=== PATIENT | female | born 1935 | race Hispanic/Latino ===

== ENCOUNTER 2019-05-10 09:00 | Inpatient (IN) | payer MEDICARE ==
[~2019-05-10] VITALS: Ht 142.2 cm; Wt 56.5 kg
[~2019-05-10 09:00] MED LIST: AMLO-332 PO; ASCO500T9 PO; ASPI-555 PO; BUDE0.5A3 IH; ESCI10TA54 PO; FERR-82 PO; FISH1CAP27 PO; FLUT1DIS3 IH; IPRA3AMP24 IH; ISOS30TA6 PO; OMEP40CA13 PO; POTA99TA21 PO; RALO60TA13 PO; ROSU5TAB12 PO
[2019-05-10 12:54] VITALS: BP 99/67
[2019-05-10 13:22] LABS: BASOPHILS % (AUTO) 0.3 % (0.0-5.0); EOSINOPHILS % (AUTO) 1.4 % (0.0-8.0); HEMATOCRIT 36.2 % (36-48); LYMPHOCYTES % (AUTO) 16.5 % (21.0-51.0); MEAN CORPUSCULAR HEMOGLOBIN 30.3 pg (27.0-33.0); MEAN CORPUSCULAR HGB CONC 33.5 g/dL (32.0-36.0); MEAN CORPUSCULAR VOLUME 90.4 fL (79-99); MONOCYTES % (AUTO) 7.7 % (3.0-13.0); NEUTROPHILS % (AUTO) 74.1 % (40.0-77.0); PLATELET COUNT (AUTO) 141 K/uL (130-400); RED BLOOD CELL COUNT(AUTO) 4.01 MIL/uL (4.00-5.50); RED CELL DISTRIBUTION WIDTH 15.6 % (11.0-15.5); WHITE BLOOD COUNT (AUTO) 7.5 K/uL (4.8-10.8)
[2019-05-10 13:25] LABS: APPEARANCE,URINE Clear (CLEAR); BILIRUBIN,URINE Negative (NEGATIVE); COLOR,URINE Yellow (YELLOW); GLUCOSE, URINE (UA) Negative (NEGATIVE); KETONES,URINE Negative (NEGATIVE); LEUKOCYTE ESTERASE ,URINE Negative (NEGATIVE); NITRATE,URINE Negative (NEGATIVE); OCCULT BLOOD,URINE Negative (NEGATIVE); PROTEIN,URINE POS 1+ mg/dL (NEGATIVE)
[2019-05-10 13:27] LABS: CREATININE 0.7 mg/dL (0.5-1.5); POTASSIUM 3.9 mmol/L (3.5-5.1)
[2019-05-10 13:33] LABS: BACTERIA,URINE Rare /HPF (None Seen); RBC,URINE 0-1 /HPF (0-1); SQUAMOUS EPITHELIAL CELL,UR Few /HPF (0-2)
[2019-05-10 13:35] LABS: INR 1.03 (0.85-1.15); PARTIAL THROMBOPLASTIN TIME 27.6 SEC (26.3-35.5); PROTHROMBIN TIME 10.8 SEC (9.6-11.6)
[2019-05-10] MEDS ORDERED: CALC-190 PO (14:13)
[2019-05-10] MEDS ORDERED: SODIUM CHLORIDE 0.9% 1000ML 1,000 ML IV SCH (17:00)
--- NOTE | 2019-05-15 10:36 | NUR ---
CARDIOVASCULAR: EKG REVIEWED BY CHRISTIAN KIMBLE CRNA, NO ORDERS RECEIVED. O.K. TO PROCEED WITH PROCEDURE.
[2019-05-16] VITALS (28 sets, daily range): BP systolic 91–136; BP diastolic 52–81
[2019-05-16] MEDS ORDERED: IODIXANOL 320 MG/ML 100 ML VIAL ONE ×2 (06:46→07:39)
[2019-05-16] MEDS ORDERED: CEFAZOLIN SODIUM 1 GM VIAL ONE (06:47)
[2019-05-16] MEDS ORDERED: NOREPINEPHRINE BITARTRATE 1 MG/1 ML ML IV ONE (06:58)
[2019-05-16] MEDS ORDERED: LIDOCAINE PF 2% 5ML ABBOJECT ONE (07:01)
[2019-05-16] MEDS ORDERED: ONDANSETRON HCL 4 MG/2 ML VIAL ONE (07:01)
[2019-05-16] MEDS ORDERED: PHENYLEPHRINE HCL 10 MG/ML 1ML VIAL IV ONE (07:01)
[2019-05-16] MEDS ORDERED: PROPOFOL 10 MG/ML 20ML VIAL IV ONE ×2 (07:02→11:40)
[2019-05-16] MEDS ORDERED: FENTANYL CITRATE PF 50 MCG/1 ML 2ML VIAL ONE (07:02)
[2019-05-16] MEDS ORDERED: ROCURONIUM 10MG/1ML SYR 10 MG/ML ML ONE (07:02)
[2019-05-16] MEDS ORDERED: GLYCOPYRROLATE 0.2 MG/ML 5 ML VIAL ONE (07:46)
[2019-05-16] MEDS ORDERED: HEPARIN SODIUM 1000UNIT/ML 10ML VIAL ONE (08:20)
[2019-05-16] MEDS ORDERED: NEOSTIGMINE 5MG/5ML SYR IV ONE (11:23)
[2019-05-16] MEDS ORDERED: GLUCAGON 1MG KIT 1 MG ML IM PRN (12:00)
[2019-05-16] MEDS ORDERED: BUDESONIDE 0.5 MG/2 ML INH IH PRN (12:00)
[2019-05-16] MEDS ORDERED: DEXTROSE 50%-WATER 50 ML DISP.SYRIN IV PRN (12:00)
[2019-05-16] MEDS ORDERED: ONDANSETRON HCL 4 MG/2 ML VIAL IV PRN (12:00)
[2019-05-16] MEDS ORDERED: SODIUM CHLORIDE 0.9% 1000ML 1,000 ML IV SCH (12:00)
[2019-05-16] MEDS ORDERED: TEMAZEPAM 30 MG CAP PO PRN (12:00)
[2019-05-16] MEDS ORDERED: ACETAMINOPHEN 325 MG TAB PO PRN (12:00)
[2019-05-16] MEDS ORDERED: IPRATROPIUM/ALBUTEROL SULFATE 3 ML SOLUTION IH PRN (12:00)
[2019-05-16] MEDS: SUGAMMADEX SODIUM 200 MG/2 ML VIAL IV SCH (12:08)
[2019-05-16 15:40] LABS: INR 1.08 (0.85-1.15); PARTIAL THROMBOPLASTIN TIME 37.7 SEC (26.3-35.5); PROTHROMBIN TIME 11.3 SEC (9.6-11.6)
[2019-05-16] MEDS: INSULIN HUMULIN R 100 UNIT/ML 3ML SQ SCH ×2 (16:30→20:47)
[2019-05-16] MEDS: CEFAZOLIN SODIUM 1 GM VIAL IVP SCH (17:20)
--- NOTE | 2019-05-16 19:30 | NUR ---
ASSESSMENT PT RESTING IN BED IN SUPINE POSITION. BILATERAL PRESSURE DRSG TO BILATERAL GROINS INTACT. PT AAOX4, PLEASANT COOPERATIVE, FOLLOWS COMMANDS. O2 3L NC INTACT. 16 FR ROJAS TO BSD. IV FLUIDS WITHOUT DIFFICULTY. WHIT BOARD UP-DATE. CALLBELL WITHIN REACH. ASSESSMENT COMPLETED, SEE FLOW SHEET.
[2019-05-16] MEDS: ATORVASTATIN CALCIUM 10 MG TABLET PO SCH (20:46)
[2019-05-16] MEDS: POTASSIUM GLUCONATE 99 MG PO SCH (20:47)
[2019-05-16] MEDS ORDERED: SUB TO BREO ELLIPTA 100MCG/25MCG PER P&T IH SCH (21:00)
[2019-05-17] VITALS (32 sets, daily range): BP systolic 98–137; BP diastolic 49–83
[2019-05-17] MEDS: CEFAZOLIN SODIUM 1 GM VIAL IVP SCH (00:15)
[2019-05-17 03:55] LABS: HEMATOCRIT 29.6 % (36-48); MEAN CORPUSCULAR HEMOGLOBIN 30.8 pg (27.0-33.0); MEAN CORPUSCULAR HGB CONC 33.8 g/dL (32.0-36.0); PLATELET COUNT (AUTO) 95 K/uL (130-400); RED BLOOD CELL COUNT(AUTO) 3.25 MIL/uL (4.00-5.50); RED CELL DISTRIBUTION WIDTH 15.6 % (11.0-15.5); WHITE BLOOD COUNT (AUTO) 8.9 K/uL (4.8-10.8)
[2019-05-17 04:04] LABS: CREATININE 0.6 mg/dL (0.5-1.5)
[2019-05-17] MEDS: INSULIN HUMULIN R 100 UNIT/ML 3ML SQ SCH ×4 (05:46→20:11)
--- NOTE | 2019-05-17 07:14 | NUR ---
REPORT BEDSIDE REPORT GIVEN TO BRUNO RITTER
[2019-05-17] MEDS: CITALOPRAM 20 MG TABLET PO SCH (08:56)
[2019-05-17] MEDS: CALCIUM 600 + VITAMIN D 400 TABLET PO SCH (08:56)
[2019-05-17] MEDS: FERROUS SULFATE 325 MG TABLET.DR PO SCH (08:56)
[2019-05-17] MEDS: ASPIRIN 81 MG EC TAB PO SCH (08:56)
[2019-05-17] MEDS: PANTOPRAZOLE SODIUM 40 MG TABLET.DR PO SCH (08:56)
[2019-05-17] MEDS: FISH OIL 1000 MG/CAP PO SCH (08:56)
[2019-05-17] MEDS: ISOSORBIDE MONO 30MG TAB SR PO SCH (08:57)
[2019-05-17] MEDS: RALOXIFENE HCL 60 MG TABLET PO SCH (08:57)
[2019-05-17] MEDS: ASCORBIC ACID 500 MG TAB PO SCH (08:57)
[2019-05-17] MEDS: AMLODIPINE BESYLATE 5 MG TAB PO SCH (08:58)
[2019-05-17] MEDS: LOSARTAN 100 MG TABLET PO SCH (08:58)
[2019-05-17] MEDS: SUGAMMADEX SODIUM 200 MG/2 ML VIAL IV SCH (12:08)
--- NOTE | 2019-05-17 13:40 | NUR ---
BLEEDING NOTED TO RT GROIN, APPLIED PRESSURE TO SITE, REAPPLIED DSTAT TO SITE, COVERED WITH PRESSURE DRESSING. DR ROBLES NOTIFIED, NO NO NEW ORDERS GIVEN. VITAL SIGNS STABLE.
--- NOTE | 2019-05-17 17:37 | NUR ---
DC PLAN VISITED WITH PATIENT. PATIENT LIVES ALONE. PROVIDER 5 HRS A DAY. [facility] AT HOME. PATIENT WEAK AFTER PROCEDURE. RECOMMENDS SNF. MARGRET SIGNED FOR [facility]. INFO SENT LET REP KNOW. Addendum: 05/17/19 at 1739 by LUDMILA BAZZI RN CM Amended: Links added.
[2019-05-17] MEDS: ATORVASTATIN CALCIUM 10 MG TABLET PO SCH (20:33)
[2019-05-17] MEDS: POTASSIUM GLUCONATE 99 MG PO SCH (20:34)
--- NOTE | 2019-05-17 21:55 | NUR ---
Pt. transferred to room 224 via wheelchair,condition stable, bilateral groin dressing clean and dry,no bleeding no hematoma noted.Report was given to PCCU nurse using SBAr all questions answered.
[2019-05-18 03:44] LABS: HEMATOCRIT 27.7 % (36-48); MEAN CORPUSCULAR HEMOGLOBIN 30.2 pg (27.0-33.0); MEAN CORPUSCULAR HGB CONC 33.6 g/dL (32.0-36.0); MEAN CORPUSCULAR VOLUME 89.8 fL (79-99); PLATELET COUNT (AUTO) 96 K/uL (130-400); RED BLOOD CELL COUNT(AUTO) 3.08 MIL/uL (4.00-5.50); RED CELL DISTRIBUTION WIDTH 15.6 % (11.0-15.5); WHITE BLOOD COUNT (AUTO) 10.3 K/uL (4.8-10.8)
[2019-05-18 03:47] LABS: CREATININE 0.7 mg/dL (0.5-1.5); POTASSIUM 3.5 mmol/L (3.5-5.1)
[2019-05-18 04:44] VITALS: BP 116/73
[2019-05-18] MEDS: INSULIN HUMULIN R 100 UNIT/ML 3ML SQ SCH ×2 (06:40→11:30)
[2019-05-18 07:51] VITALS: BP 116/70
--- NOTE | 2019-05-18 08:00 | NUR ---
AM ASSESSMENT PT LAYING IN BED, HOB ELEVATED 30 DEGREES, RESTING. A/O X 3. NO SOB. NO DISTRESS NOTED. DENIES CHEST PAIN OR DISCOMFORT. DENIES PALPITATIONS. TELE: 80s. DENIES N/V AND/OR DIARRHEA. BILATERAL GROINS DSG DRY & INTACT. BILATERAL GROIN PUNCTURE SITES SOFT, NON-TENDER. NO BLEEDING, NO HEMATOMA NOTED. PRESSURE DSG REMOVED FROM RT GROIN. (+) PEDAL PULSES. BLE PINK & WARM TO TOUCH. UP W/ASSISTANCE. INSTRUCTED TO CALL FOR ASSISTANCE. CALL CIERRA W/IN REACH.
[2019-05-18] MEDS: ASPIRIN 81 MG EC TAB PO SCH (08:39)
[2019-05-18] MEDS: ISOSORBIDE MONO 30MG TAB SR PO SCH (08:40)
[2019-05-18] MEDS: FISH OIL 1000 MG/CAP PO SCH (08:40)
[2019-05-18] MEDS: CITALOPRAM 20 MG TABLET PO SCH (08:40)
[2019-05-18] MEDS: FERROUS SULFATE 325 MG TABLET.DR PO SCH (08:41)
[2019-05-18] MEDS: RALOXIFENE HCL 60 MG TABLET PO SCH (08:41)
[2019-05-18] MEDS: LOSARTAN 100 MG TABLET PO SCH (08:41)
[2019-05-18] MEDS: PANTOPRAZOLE SODIUM 40 MG TABLET.DR PO SCH (08:41)
[2019-05-18] MEDS: CALCIUM 600 + VITAMIN D 400 TABLET PO SCH (08:41)
[2019-05-18] MEDS: ASCORBIC ACID 500 MG TAB PO SCH (08:41)
[2019-05-18] MEDS: AMLODIPINE BESYLATE 5 MG TAB PO SCH (08:41)
[2019-05-18 11:59] VITALS: BP_SYST 100; BP_SYST 116; BP_DIAS 70; BP_DIAS 72
--- NOTE | 2019-05-18 16:15 | NUR ---
DISCHARGE MED REC FAXED TO [facility].
[2019-05-18 16:29] VITALS: BP_SYST 115; BP_SYST 15; BP_DIAS 73
--- NOTE | 2019-05-18 17:30 | NUR ---
DISCHARGE TELEPHONE REPORT CALLED TO Prasad BOOGIE LVN @ [facility].
--- NOTE | 2019-05-18 17:40 | NUR ---
DISCHARGE VERBAL & WRITTEN DISCHARGE INSTRUCTIONS REVIEWED & GIVEN TO PT. QUESTIONS ENCOURAGED & CLARIFIED. PROPER CARE & ACTIVITY AFTER ENDOLUMINAL REVIEWED. F/U APPT INFORMATION REVIEWED. TELE KARINA REMOVED. IV DISCONTINUED. MI INFORMED REPORT ALREADY CALLED TO [facility]. PT TO GATHER PERSONAL BELONGINGS. [facility] TRANSPORT TO TAKE PT TO [facility].
--- NOTE | 2019-05-18 18:35 | NUR ---
DISCHARGE [facility] STAFF HERE TO TRANSFER PT TO SNF FACILITY. PT TAKEN TO [facility] VEHICLE VIA WC.
== END 2019-05-18 18:45 | DRG 269 ==
LOC: EDSTATUS 12:00 → DAHIP 05-16 05:39 → 2BH 05-16 05:40 → 2DH 05-17 21:16
PROVIDERS: ADMIT Internal Medicine Pulmonary Disease; ATTEND Internal Medicine Pulmonary Disease
PROC: 04793DZ Dilation of Right Renal Artery with Intraluminal Device, Percutaneous Approach (ICD-10-PCS; principal; 2019-05-16)
PROC: 04V03DZ Restriction of Abdominal Aorta with Intraluminal Device, Percutaneous Approach (ICD-10-PCS; 2019-05-16)
PROC: 047A3DZ Dilation of Left Renal Artery with Intraluminal Device, Percutaneous Approach (ICD-10-PCS; 2019-05-16)
PROC: B4181ZZ Fluoroscopy of Bilateral Renal Arteries using Low Osmolar Contrast (ICD-10-PCS; 2019-05-16)
PROC: B4101ZZ Fluoroscopy of Abdominal Aorta using Low Osmolar Contrast (ICD-10-PCS; 2019-05-16)
DX: I71.4 Abdominal aortic aneurysm, without rupture (principal); D62 Acute posthemorrhagic anemia; I70.1 Atherosclerosis of renal artery; E78.5 Hyperlipidemia, unspecified; J44.9 Chronic obstructive pulmonary disease, unspecified; K21.9 Gastro-esophageal reflux disease without esophagitis; M41.9 Scoliosis, unspecified; M81.0 Age-related osteoporosis without current pathological fracture; I10 Essential (primary) hypertension; Z86.79 Personal history of other diseases of the circulatory system
CPT/HCPCS: 34710; 34712; 34713; 36252; 36415; 37236; 37237; 71045; 80048; 81001; 82948; 85025; 85027; 85347; 85610; 85730; 86850; 86900; 86901; 86922; 93005; 94664; A4344; C1725; C1760; C1769; C1887; C1893; C1894; G0378; J0690; J1644; J2001; J2370; J2405; J2704; J2710; J3010; J3490; J7030; Q9967

== ENCOUNTER → 2019-06-27 | Outpatient (CLI) | payer MEDICARE ==
[~2019-06-27] MED LIST changes: +CALC-190 PO; +IOHEXOL 350 MG/ML 100ML INFUS..BTL IV ONE; +IOHEXOL-350 50ML VIAL IV ONE
== END | disposition home or self-care (01) ==
LOC: RAH 08:39
PROVIDERS: ATTEND Internal Medicine Cardiovascular Disease
DX: I51.7 Cardiomegaly (principal); I70.8 Atherosclerosis of other arteries; I71.4 Abdominal aortic aneurysm, without rupture
CPT/HCPCS: 75635; Q9967 ×2